=== PATIENT | female | born 1960 | race Caucasian/White ===

== ENCOUNTER → 2017-02-09 | Outpatient (CLI) | payer OTHER | LOC: BMCIMAGING 08:26 | DX: Z12.31 Encounter for screening mammogram for malignant neoplasm of breast (principal) | CPT/HCPCS: G0202 ==

== ENCOUNTER → 2018-03-16 | Outpatient (CLI) | payer OTHER | LOC: BMCIMAGING 13:22 | DX: Z12.31 Encounter for screening mammogram for malignant neoplasm of breast (principal) ==